=== PATIENT | female | born 1955 | race Hispanic/Latino ===

== ENCOUNTER → 2019-07-20 | Outpatient (CLI) | payer OTHER ==
[~2019-07-20] MED LIST: LATANOPROST2.5 ML OP; LOTREL 5-10 MG1 EACH PO; LOTREL 5-20 MG1 EACH PO
[2019-07-20 12:21] LABS: BASOPHILS % 0.3 % (0.0-1.0); EOSINOPHILS # (AUTO) 0.1 (0.0-0.4); EOSINOPHILS % 1.1 % (0.0-6.0); HEMATOCRIT 39.7 % (34.2-44.1); HEMOGLOBIN 13.6 g/dL (12.0-16.0); LYMPHOCYTES # (AUTO) 2.3 (1.0-3.2); MEAN CORPUSCULAR HEMOGLOBIN 32.5 pg (28-32); MEAN CORPUSCULAR HGB CONC 34.3 g/dL (31-35); MEAN CORPUSCULAR VOLUME 94.7 fL (81-99); MONOCYTES # (AUTO) 0.5 (0.2-0.8); MONOCYTES % 6.5 % (4.4-11.3); NEUTROPHILS # (AUTO) 4.2 (2.1-6.9); NEUTROPHILS % 59.7 % (38.7-80.0); PLATELET COUNT 216 x10e3/uL (140-360); RED BLOOD COUNT 4.19 x10e6/uL (3.6-5.1); RED CELL DISTRIBUTION WIDTH 12.8 % (11.7-14.4)
--- NOTE | 2019-07-20 12:40 | Diagnostic Imaging Report ---
EXAMINATION: CHEST 2 VIEWS INDICATION: Pre-operative COMPARISON: None FINDINGS: LINES/TUBES:None LUNGS:The lungs are well-inflated. No focal consolidation or pulmonary edema. PLEURA:No pleural effusion or pneumothorax. MEDIASTINUM:The cardiomediastinal silhouette appears normal in size and shape. BONES/SOFT TISSUES:No acute osseous injury. ABDOMEN:No free air under the diaphragm. IMPRESSION: No focal pneumonia or pulmonary edema. Signed by: Emmie Velazquez MD on 07/20/2019 12:38 PM
== END ==
LOC: RAD 05:00 → EDSTATUS 07-22 07:00
PROVIDERS: ATTEND Otolaryngology
DX: Z01.818 Encounter for other preprocedural examination (principal); C73 Malignant neoplasm of thyroid gland
CPT/HCPCS: 36415; 71046; 85025; 93005

== ENCOUNTER → 2019-07-30 | Day surgery (SDC) | payer OTHER ==
[2019-07-27 13:05] LABS: BASOPHILS % 0.3 % (0.0-1.0); EOSINOPHILS # (AUTO) 0.1 (0.0-0.4); EOSINOPHILS % 1.3 % (0.0-6.0); HEMATOCRIT 40.5 % (34.2-44.1); HEMOGLOBIN 13.8 g/dL (12.0-16.0); LYMPHOCYTES # (AUTO) 2.7 (1.0-3.2); LYMPHOCYTES % 36.5 % (18.0-39.1); MEAN CORPUSCULAR HEMOGLOBIN 32.5 pg (28-32); MEAN CORPUSCULAR HGB CONC 34.1 g/dL (31-35); MEAN CORPUSCULAR VOLUME 95.5 fL (81-99); MONOCYTES # (AUTO) 0.5 (0.2-0.8); NEUTROPHILS # (AUTO) 4.1 (2.1-6.9); NEUTROPHILS % 54.6 % (38.7-80.0); PLATELET COUNT 245 x10e3/uL (140-360); RED BLOOD COUNT 4.24 x10e6/uL (3.6-5.1); RED CELL DISTRIBUTION WIDTH 12.6 % (11.7-14.4)
[2019-07-27 13:25] LABS: ALBUMIN 4.5 g/dL (3.5-5.0); ALBUMIN/GLOBULIN RATIO 1.2 (0.8-2.0); ANION GAP 13.1 mmol/L (8-16); CALCIUM 10.6 mg/dL (8.4-10.2); CREATININE, SERUM 0.99 mg/dL (0.57-1.11); POTASSIUM 4.1 mmol/L (3.5-5.1)
[~2019-07-30] VITALS: Ht 157.5 cm; Wt 74.8 kg
[2019-07-30] VITALS (14 sets, daily range): BP systolic 1–151; BP diastolic 61–83
[~2019-07-30] MED LIST changes: +DIPHENHYDRAMINE HCL INJ 50 MG/ML VIAL ONE; +FENTANYL CITRATE/PF 100MCG/2 ML INJ ONE; +HEPARIN SOD/SOD CHLORIDE 2,000 ML ONE; +IOPAMIDOL 370 MG/ML 200 ML INFUS..BTL INJ ONE; +LIDOCAINE HCL 2% LOCAL 20 ML VIAL ONE; +MIDAZOLAM HCL 2 MG/2 ML VIAL ONE; +PROMETHAZINE HCL (IM) 25 MG/ML VIAL ONE; +SODIUM CHLORIDE 0.9% 1000ML 1,000 ML ONE; +VERAPAMIL HCL 2.5 MG/ML 2 ML VIAL ONE
--- OUTSIDE RECORDS SUMMARY | 2019-07-30 10:59 | XMS REPORT ---
[facility] Address Unknown Phone Unavailable Care Team Providers Care Assistant Unit Forester Name Role Phone SUNG ZAPIEN Unavailable Unavailable Problems This patient has no known problems. Allergies, Adverse Reactions, Alerts This patient has no known allergies or adverse reactions. Medications This patient has no known medications. Results Test Description Test Time Test Comments Text Results Atomic Results Result Comments CHEST 2 VIEWS 2019-07-20 12:37:00 [place] [address] Patient Name: GISSELLE VENEGAS MR #: [id number] : 1955 Age/Sex: 64/F Req #: [id number] Adm Physician: Ordered by: CURRY WILLETT, SUNG WILLETT Report #: [id number] Location: OR Room/Bed: Procedure: [id number] DX/CHEST 2 VIEWS Exam Date: 07/20/19 Exam Time: 1200 REPORT STATUS: Signed EXAMINATION: CHEST 2 VIEWS INDICATION: Pre-operative COMPARISON: None FINDINGS: LINES/TUBES:None LUNGS:The lungs are well-inflated. No focal consolidation or pulmonary edema. PLEURA:No pleural effusion or pneumothorax. MEDIASTINUM:The cardiomediastinal silhouette appears normal in size and shape. BONES/SOFT TISSUES:No acute osseous injury. ABDOMEN:No free air under the diaphragm. IMPRESSION: No focal pneumonia or pulmonary edema. Signed by: Teresa Benton MD on 07/20/2019 12:38 PM Dictated By: TERESA BENTON MD 1238 Transcribed By: JESSICA on 07/20/19 1238 COPY TO: SUNG ZAPIEN FNA US GUIDED 1ST LESION 2019-06-03 12:42:00 [place] [address] Patient Name: GISSELLE VENEGAS MR #: [id number] : 1955 Age/Sex: 64/F Req #: [id number] Adm Physician: Ordered by: SUNG ZAPIEN MD, MD Report #: [id number] Location: US Room/Bed: Procedure: [id number] IR/FNA US GUIDED 1ST LESION Exam Date: 06/03/19 Exam Time: 1046 REPORT STATUS: Signed Ultrasound guided fine needle aspiration biopsy, 06/03/2019 Clinical History: Thyroid nodule Comparison: Ultrasound of the thyroid dated 2019 Sedation: None. Supervisor Offset Plate Preparation: Ruma. [employer]: None. Estimated Blood Loss: none Specimen: 4 FNA samples. Technique: Informed consent was obtained. The risks of pain, bleeding, infection, injury to thyroid/adjacent structures and adverse medication reactions were discussed with the patient. After informed consent was obtained, the patient's thyroid gland was scanned. An approximately 1.0 1.5 x 1.4 cm solid nodule in the intrapolar region was identified and targeted for fine-needle aspiration. After the skin was prepped and draped in the usual sterile manner and local anesthesia was achieved with 1% lidocaine, a 25 gauge needle was advanced into the left thyroid nodule, under direct sonographic observation. A total of 4 passes were made. Cytopathology support was present during the procedure and deemed the specimens sufficient for diagnosis.The patient tolerated the procedure well, without immediate complications. The patient was discharged from the department in good condition. Impression: Successful and uncomplicated ultrasound guided fine needle aspiration a left thyroid nodule described above.. Signed by: Osvaldo Levi MD on 06/03/2019 12:44 PM Dictated By: OSVALDO LEVI MD 1244 Transcribed By: JESSICA on 06/03/19 1244 COPY TO: SUNG ZAPIEN US THYROID 2019 15:41:00 [place] [address] Patient Name: GISSELLE VENEGAS MR #: [id number] : 1955 Age/Sex: 64/F Req #: [id number] Adm Physician: Ordered by: SUNG ZAPIEN MD, MD Report #: [id number] Location: US Room/Bed: Procedure: [id number] US/US THYROID Exam Date: 05/28/19 Exam Time: 1217 REPORT STATUS: Signed Thyroid ultrasound History: Thyroid nodules Comparison: N one Findings: The thyroid echotexture is normal. Vascularity is normal. The right lobe measures 4.9 x 1.5 x 1.4 cm. The left lobe measures 3.6 x 1.3 x 1.7 cm. The isthmus measures 0.4 cm. Nodules (measurements are AP, transverse, craniocaudal): Right Lobe: 1. Upper pole 1.1 x 0.7 x 1.2 cm mixed cystic and solid nodule without internal calcification (TR 1) 2. Lower pole 0.7 x 0.6 x 0.6 cm mixed cystic and solid isoechoic smoothly marginated nodule without internal calcification (TR 2) Left Lobe: 1. Interpolar 1.0 x 1.5 x 1.4 cm solid, hypoechoic, taller than wide, lobulated nodule with macrocalcifications (TR 5). Isthmus: No cystic mass or discrete solid nodule identified. Lymph Nodes: No cervical lymph nodes are identified. Parathyroids: Not visualized. IMPRESSION: Left thyroid interpolar 1.0 x 1.5 x 1.4 cm nodule is highly suspicious (TR 5). Recommend FNA. Right thyroid mixed cystic and solid nodules are not suspicious. ACR glossary of thyroid rads TI-RADS 1: No focal lesion. TI-RADS 2: Not suspicious. TI-RADS 3: Mildly suspicious (recommend FNA is greater than or equal to 2.5 cm; follow-up at 1, 3, and 5 years if greater than or equal to 1.5 cm) TI-RADS 4: Moderately Suspicious (recommend FNA is greater than or equal to 1.5 cm; follow-up at 1, 2, 3, and 5 years) TI-RADS 5: Highly suspicious (recommend FNA is greater than or equal to 10 mm) TI-RADS 6: Biopsy-proven malignancy Signed by: Teresa Benton MD on 2019 3:47 PM Dictated By: TERESA BENTON MD 154 Transcribed By: JESSICA on 05/28/19 154 COPY TO: SUNG ZAPIEN
--- NOTE | 2019-07-30 17:30 | NUR ---
Patient ambulated to restroom with standby assistance. Patient voided without difficulty. Patient ambulated back to stretcher with standby assistance. No distress noted. Family assisting patient to get dressed.
--- NOTE | 2019-07-30 17:45 | NUR ---
IV to left hand removed and dressing placed per unit protocol. Dressing to left hand is clean, dry, and intact. Dressing to right wrist is clean,dry, and intact. Right arm splint in place. Dressing to right groin is clean,dry, and intact. Patient discharged to private vehicle via wheelchair with Jose Ramon Rivers as water truck driver. Patient discharged with belongings. No distress noted at time of discharge.
--- NOTE | 2019-07-30 19:34 | Operative Report ---
DATE OF PROCEDURE: 07/30/2019 SURGEON: Pierce Cordoba MD CARDIAC SERVICES CLERK PROCEDURE INDICATION: Coronary artery disease, abnormal stress test. PROCEDURES PERFORMED: 1. Left heart catheterization, selective coronary angiography. 2. Deployment of right wrist TR band. 3. Manual removal of the right groin sheath. COMPLICATIONS: Severe spasm of the right brachial artery necessitating groin access. DESCRIPTION OF PROCEDURE: Access obtained in the right radial artery. A 5-Emirati sheath was placed, severe spasm, unable to advance catheter. Right groin access was obtained. Coronary angiography demonstrated mild coronary artery disease, 10% to 20% luminal irregularities. Excellent flow in all vessels. No critical stenosis or occlusions were noted. No intervention was deemed necessary. Right groin sheath was removed under manual pressure. Right wrist TR band was applied. The patient was discharged home same day with clearance for her noncardiac surgery. Pierce Cordoba MD KSB/MODL /[id number]
== END | disposition home or self-care (01) ==
LOC: CATH LAB 10:56
PROVIDERS: ATTEND Internal Medicine Interventional Cardiology
DX: I25.118 Atherosclerotic heart disease of native coronary artery with other forms of angina pectoris (principal); R94.39 Abnormal result of other cardiovascular function study; I10 Essential (primary) hypertension; Z01.812 Encounter for preprocedural laboratory examination; Z68.31 Body mass index [BMI] 31.0-31.9, adult
CPT/HCPCS: 36415; 80053; 85025; 93454; C1769 ×2; C1887; J1200; J2001; J2250; J2550; J3010; J7030; Q9967; 99152; 99153

== ENCOUNTER 2019-10-07 05:42 | Observation (INO) | payer OTHER ==
[2019-10-02 10:46] LABS: BASOPHILS % 0.2 % (0.0-1.0); EOSINOPHILS # (AUTO) 0.1 (0.0-0.4); EOSINOPHILS % 1.8 % (0.0-6.0); HEMATOCRIT 38.2 % (34.2-44.1); HEMOGLOBIN 12.7 g/dL (12.0-16.0); LYMPHOCYTES # (AUTO) 2.3 (1.0-3.2); LYMPHOCYTES % 35.1 % (18.0-39.1); MEAN CORPUSCULAR HEMOGLOBIN 32.1 pg (28-32); MEAN CORPUSCULAR HGB CONC 33.2 g/dL (31-35); MEAN CORPUSCULAR VOLUME 96.5 fL (81-99); MONOCYTES # (AUTO) 0.6 (0.2-0.8); MONOCYTES % 9.2 % (4.4-11.3); NEUTROPHILS # (AUTO) 3.6 (2.1-6.9); NEUTROPHILS % 53.5 % (38.7-80.0); PLATELET COUNT 232 x10e3/uL (140-360); RED BLOOD COUNT 3.96 x10e6/uL (3.6-5.1); RED CELL DISTRIBUTION WIDTH 13.2 % (11.7-14.4)
[~2019-10-07] VITALS: Ht 160 cm; Wt 83.0 kg
[~2019-10-07 05:42] MED LIST changes: -DIPHENHYDRAMINE HCL INJ 50 MG/ML VIAL ONE; -FENTANYL CITRATE/PF 100MCG/2 ML INJ ONE; -HEPARIN SOD/SOD CHLORIDE 2,000 ML ONE; -IOPAMIDOL 370 MG/ML 200 ML INFUS..BTL INJ ONE; -LIDOCAINE HCL 2% LOCAL 20 ML VIAL ONE; -MIDAZOLAM HCL 2 MG/2 ML VIAL ONE; -PROMETHAZINE HCL (IM) 25 MG/ML VIAL ONE; -SODIUM CHLORIDE 0.9% 1000ML 1,000 ML ONE; -VERAPAMIL HCL 2.5 MG/ML 2 ML VIAL ONE
--- OUTSIDE RECORDS SUMMARY | 2019-10-07 05:45 | XMS REPORT ---
Author Author [facility] t Organization [facility] Address [address] [place] [address] Phone Unavailable Care Team Providers Care Manager City Name Role Phone Jin WILLETT, Victor Manuel PCP SUNG ZAPIEN Unavailable Bren WILLETT, Angelica Guevara Attphys Payers Payer Name Policy Type Policy Number Effective Date Expiration Date S giulianakajal JIGNESH OPEN ACCESS/NETWORKxxxxxxxxxxx2016-PresentO xxxxxxxxxxx 2016 00:00:00 Michael Floyd Problems This patient has no known problems. Allergies, Adverse Reactions, Alerts This patient has no known allergies or adverse reactions. Family History Family Member Diagnosis Comments Start Date Stop Date Source Natural father Cancer [facility] Natural father Diabetes [facility] Maternal aunt Cancer [facility] Natural sister Breast cancer Michael Floyd Social History Social Habit Start Date Stop Date Quantity Comments Source Sex Assigned [facility] stocarolyn Floyd Alcohol intake 2019-01-23 00:00:00 2019-01-23 00:00:00 Current non-drinker of alcohol (finding) Michael Floyd Smoking Status Start Date Stop Date Source Never smoker Michael yeboah Medications Ordered Medication Name Filled Medication Name Start Date Stop Da te Current Medication? Ordering Clinician Indication Dosage Frequency Signature (SIG) Comments Components Source latanoprost (XALATAN) 0.005 % ophthalmic solution 2017-08-18 00:00:00 Yes Michael Norris ist amlodipine-benazepril (LOTREL 2.5-10) 2.5-10 mg per capsule 2017-08-15 00:00:00 Yes Michael Floyd Vital Signs Vital Name Observation Time Observation Value Comments Source Systolic blood pressure 2019-01-23 14:16:00 155 mm[Hg] Michael Floyd Diastolic blood pressure 2019-01-23 14:16:00 84 mm[Hg] Michael Floyd Heart rate 2019-01-23 14:16:00 69 /min Michael Floyd Body height 2019-01-23 14:16:00 160 cm Michael Floyd Body weight 2019-01-23 14:16:00 73.392 kg Michael Floyd BMI 2019-01-23 14:16:00 28.66 kg/m2 Michael Floyd Procedures Procedure Date / Time Performed Performing Clinician Sourc e PAP W/AGE BASED SCREENING PLUS CT/NG 2019-01-23 14:37:00 Ismale Correia THINPREP TIS PAP 2019-01-23 14:37:00 Ismael Correia HPV MRNA E6/E7 REFLEX HPV 16, 18/45 (REFLEX) 2019-01-23 14: 37:00 Ismael Correia CHLAMYDIA/N. GONORRHOEAE RNA, TMA 2019-01-23 14:37:00 Ori Correia Plan of Care Planned Activity Planned Date Details Comments Source Future Scheduled Test [code = ] Future Scheduled Test [code = ] Future Scheduled Test [code = ] Future Scheduled Test [code = ] Future Scheduled Test [code = ] Future Scheduled Test [code = ] Results Test Description Test Time Test Comments Results Result Comments Source CHEST 2 VIEWS 2019-07-20 12:37:00 [place] [address] Patient Name: GISSELLE VENEGAS MR #: [id number] : 1955 Age/Sex: 64/F Req #: [id number] Adm Physician: Ordered by: CURRY WILLETT, SUNG WILLETT Report #: [id number] Location: OR Room/Bed: Procedure: [id number] DX/CHEST 2 VIEWS Exam Date: 07/20/19 Exam Time: 1200 REPORT STATUS: Signed EXAMINATION: CHEST 2 VIEWS INDICATION: Pre-operative COMPARISON: None FINDINGS: LINES/TUBES:None LUNGS:The lungs are well-inflated. No focal consolidation or pulmonary edema. PLEURA:No pleural effusion or pneumothorax. MED IASTINUM:The cardiomediastinal silhouette appears normal in size and shape. BONES/SOFT TISSUES:No acute osseous injury. ABDOMEN:No free air under the diaphragm. IMPRESSION: No focal pneumonia or pulmonary edema. Signed by: Teresa Benton MD on 07/20/2019 12:38 PM Dictated By: TERESA BENTON MD 1238 Transcribed By: JESSICA on 07/20/19 1238 COPY TO: SUNG ZAPIEN US GUIDED 1ST LESION 2019-06-03 12:42:00 [place] [address] Patient Name: GISSELLE VENEGAS MR #: [id number] : 1955 Age/Sex: 64/F Req #: [id number] Adm Physician: Ordered by: SUNG ZAPIEN MD, MD Report #: [id number] Location: Room/Bed: Procedure: [id number] IR/FNA US GUIDED 1ST LESION Exam Date: 06/03/19 Exam Time: 1046 REPORT STATUS: Signed Ultrasound guided fine needle aspiration biopsy, 06/03/2019 Clinical History: Thyroid nodule Comparison: Ultrasound of the thyroid dated 2019 Sedation: None. Sports Agent: Ruma. Appian Bpm Developer: None. Estimated Blood Loss: none Specimen: 4 [...] on 06/03/19 1244 COPY TO: SUNG ZAPIEN THYROID 2019 15:41:00 [place] [address] Patient Name: GISSELLE VENEGAS MR #: [id number] : 1955 Age/Sex: 64/F Req #: [id number] Adm Physician: Ordered by: SUNG ZAPIEN MD, MD Report #: [id number] Location: Room/Bed: Procedure: [id number] US/US THYROID Exam Date: 01/02/20 Exam Time: 1217 REPORT STATUS: Signed Thyroid ultrasound History: Thyroid nodules Comparison: None Findings: The thyroid echotexture is normal. Vascularity [...] 3:47 PM Dictated By: TERESA BENTON MD 46 Transcribed By: JESSICA on 05/28/191546 COPY TO: SNUG ZAPIEN THINPREP TIS PAP 2019-01-31 20:41:00 Test Item Clinical information (test code = 18431-4) None given Date of last menstrual period (test code = 8665-2) NONE GIVEN Prev. pap: (test code = 02997-3) NONE GIVEN Prev. bx: (test code = 14507-8) NONE GIVEN Source (test code = 92530-3) None given Statement of adequacy (test code = 20364-0) Satisfactory for evaluation.Endocervical/transformation zone componentpresent. Interpretation/result: (test code = 57629-8) Negative for intraepithelial lesion or malignancy.Atrophic pattern; predominantly parabasal cells Comment (test code = 19272-4) This Pap test has been evaluated with computerassisted technology. Search Marketing Analyst (test code = 88101-8) YL, CT(ASCP)CT screening location: [address], [place] [address] Comment (test code = 5357052) EXPLANATORY NOTE: The Pap is a screening test for cervical cancer. It is not a diagnostic test and is subject to false negative and false positive results. It is most reliable when a satisfactory sa mple, regularly obtained, is submitted with relevant clinical findings and history, and when the Pap result is evaluated along with historic and current clinical information. SUDARSHAN (test code = SUDARSHAN) Performing Organization Info rmation: Site ID: [id number] Name: [facility] Address: [address] [place] [phone] Director: Neno FloydCHLAMYDIA/N. GONORRHOEAE RNA, BDD3722-07-09 20:41:00* Test Item Value Reference Range Interpretation Comments Chlamydia trachomatis RNA, TMA (test code = 63316-4) NOT DETECTE D NOT DETECTED Neisseria gonorrhoeae RNA, TMA (test code = 51515-6) NOT DETECTE D NOT DETECTED (Always message) (test code = 2647) This test was performed using the APTIMA COMBO2 Assay([employer] The analytical performance characteristics of this assay, when used to test SurePath specimens havebeen determined by [facility]. SUDARSHAN (test code = SUDARSHAN) Performing Organization Info rmation: Site ID: [id number] Name: [facility] Address: [address] [place] [address] Director: Dr. Neno FloydHPV mRNA E6/E7 REFLEX HPV 16, 18/423169-30-14 20:41:00* Test Item Value Reference Range Interpretation Comments HPV mRNA e6/e7 (test code = 62278-8) Not Detected Not Detected This test was performed using the APTIMA HPV Assay ([employer] This assay detects E6/E7 viral messenger RNA (mRNA) from 14high-risk HPV types (16,18,31,33,35,39,45,51,52,56,58,59,66,68). The analytical performance characteristics ofthis assay have been determined by Fingerprint. The modifications have not beencleared or approved by the FDA. This assay hasbeen validated pursuant to the CLIA regulationsand is used for clinical purposes. SUDARSHAN (test code = RAC) Performing Organization Info rmation: Site ID: [id number] Name: [facility] Address: [address] [place] [phone] Director: Dr. Neno FloydPAKeshawn W/AGE BASED SCREENING PLUS CT/YD3746-04-03 20:41:00 CommentComment: This order for age-based cervical cancer and STI screening follo ws ACOG guidelines(PB 168, 140,FPA016). See individual assays for performing sit e location. Destinator TechnologiesKESSLER INSTITUTE FOR RE[facility]ABILITATION IIPerforming Organization Information: S ite ID: IG Name: [facility] Address: [address] [place] [phone] Director: Dr. Neno Floyd
--- OUTSIDE RECORDS SUMMARY | 2019-10-07 05:45 | XMS REPORT | Clinical Summary ---
Author Author [facility] Address Unknown Phone Unavailable Care Team Providers Care Stove Mounter Name Role Phone Victor Manuel Abdi MD PCP Allergies No Known Allergies Medications End Date Status Medication Sig Dispensed Refills Start Date Active amlodipine-benazepril 0 (LOTREL 2.5-10) 2.5-10 mg 8 per capsule Active latanoprost (XALATAN) 0 0.005 % ophthalmic 8 solution Active Problems Not on file Encounters Care Team Description Date Type Specialty Ismael Correia MD 02/10/2019 Telephone Obstetrics and Gyne cology Ismael Correia MD Screening for cervical cancer (Primary D x); Well woman exam 01/23/2019 Office Visit Obstetrics and Gyne cology after 10/06/2018 Family History Medical History Relation Name Comments Cancer Father Diabetes Father Cancer Maternal Aunt Breast cancer Sister Relation Name Status Comments Father Maternal Aunt Sister Social History Date Tobacco Use Types Packs/Day Years Used Never Smoker Smokeless Tobacco: Never Used Drinks/Week oz/Week Comments Alcohol Use No Sex Assigned at Date Recorded Not on file Industry Job Start Date Occupation Not on file Not on file Not on file Travel End Travel History Travel Start No recent travel history available. Last Filed Vital Signs Reading Time Taken Comments Vital Sign 155/84 01/23/2019 9:16 AM CDT Blood Pressure 69 01/23/2019 9:16 AM CDT Pulse - - Temperature - - Respiratory Rate - - Oxygen Saturation - - Inhaled Oxygen Concentration 73.4 kg (161 lb 12.8 oz) 01/23/2019 9:16 AM CDT Weight 160 cm (5' 3") 01/23/2019 9:16 AM CDT Height 28.66 01/23/2019 9:16 AM CDT Body Mass Index Plan of Treatment Health Maintenance Due Date Last Done Comments CERVICAL CANCER SCREENING 1975 BREAST CANCER SCREENING 2004 COLONOSCOPY SCREENING 2004 SHINGLES VACCINES (#1) 2004 65+ PNEUMOCOCCAL VACCINE 2019 (1 of 2 - PCV13) INFLUENZA VACCINE 12/26/2019 Procedures Comments Procedure Name Priority Date/Time Associated Diag nosis CHLAMYDIA/N. GONORRHOEAE Routine 01/23/2019 RNA, TMA 9:37 AM CDT HPV MRNA E6/E7 REFLEX Routine 01/23/2019 HPV 16, 18/45 (REFLEX) 9:37 AM CDT THINPREP TIS PAP Routine 01/23/2019 9:37 AM CDT PAP W/AGE BASED SCREENING Routine 01/23/2019 Scre ening for cervical PLUS CT/NG 9:37 AM CDT cancer Well woman exam after 10/06/2018 Results * HPV mRNA E6/E7 REFLEX HPV 16, 18/45 (01/23/2019 9:37 AM CDT) HPV mRNA e6/e7 Not Detected Not Detected [facility] Comment: DIAGNOSTICS-LILI This test was performed using ING II the APTIMA HPV Assay ([employer] This assay detects E6/E7 viral messenger RNA (mRNA) from 14 high-risk HPV types (16,18,31,33,35,39,45,51,52,56 ,58,59,66,68). The analytical performance characteristics of this assay have been determined by Flowline. The modifications have not been cleared or approved by the FDA. This assay has been validated pursuant to the CLIA regulations and is used for clinical purposes. Specimen Resulting Agency Comment Performing Organization Information: Site ID: [id number] Name: [facility] Address: [address] [place] [address] Director: Dr. Neno Torres Performing Organization Address City/State/Zipcode Ph one Number PAPI FISHER Ryan-[facility]RUN[facility] [address] [place] [address]. [place] [address] II * PAP W/AGE BASED SCREENING PLUS CT/NG (01/23/2019 9:37 AM CDT) Comment Comment: [facility] This order for age-based DIAGNOSTICS-LILI cervical cancer and STI ING II screening follows ACOG guidelines(PB 168, 140, JZT794). See individual assays for performing site location. Specimen Swab Resulting Agency Comment Performing Organization Information: Site ID: [id number] Name: [facility] Address: [address] [place] [phone] Director: Dr. Neno Torres Performing Organization Address [facility] one Number PAPI Cubie [address] [address] II * CHLAMYDIA/N. GONORRHOEAE RNA, TMA (01/23/2019 9:37 AM CDT) Chlamydia NOT DETECTED NOT DETECTED [facility] trachomatis DIAGNOSTICS-[facility] RNA, TMA ING II Neisseria NOT DETECTED NOT DETECTED [facility] gonorrhoeae DI[facility]NOSTICS-[facility] RNA, TMA ING II (Always Comment: [facility] message) This test was performed using RoomiePics TICS-LILI the APTIMA COMBO2 Assay ING II ([employer] The analytical performance characteristics of this assay, when used to test SurePath specimens have been determined by [facility]line. Specimen Resulting Agency Comment Performing Organization Information: Site ID: [id number] Name: [facility] Address: [address] [place] [phone] Director: Dr. Neno Torres Performing Organization Address [facility] one Number PAPI Cubie [address] [address] II * THINPREP TIS PAP (01/23/2019 9:37 AM CDT) Clinical None given [facility] information [facility]NOSTICS [place] Date of last NONE GIVEN [facility] menstrual DIAGNOSTICS period [place] Prev. pap: NONE GIVEN [facility] [place] Prev. bx: NONE GIVEN [facility] [place] Source None given [facility] [place] Statement of Comment: [facility] adequacy Satisfactory for evaluation. DIAGNOST ICS Endocervical/transformation [place] zone component present. Interpretation/ Comment: [facility] result: Negative for intraepithelial DIAGNOST ICS lesion or malignancy. IBIS Atrophic pattern; predominantly parabasal cells Comment Comment: [facility] This Pap test has been DIAGNOSTICS evaluated with Radius App technology. Cytotechnologis Comment: [facility] t YL, CT(ASCP) DIAGNOSTICS CT screening location: [facility] [address] [place] [address], [facility] [address] Comment Comment: Cubie EXPLANATORY NOTE: DIAGNOSTICS The Pap is a screening test [place] for cervical cancer. It is not a diagnostic test and is subject to false negative and false positive results. It is most reliable when a satisfactory sample, regularly obtained, is submitted with relevant clinical findings and history, and when the Pap result is evaluated along with historic and current clinical information. Specimen Resulting Agency Comment Performing Organization Information: Site ID: [id number] Name: [facility] Address: [address] [place] [phone] Director: Neno Torres Performing Organization Address City/State/Zipcode Ph one Number [address] [address] after 10/06/2018 Insurance Type Payer Benefit Subscriber ID Effective Phone Address Plan / Dates Group HMO CIGNA CIGNA OPEN xxxxxxxxxxx 2016-P ACCESS/NET resent WORK Advance Directives For more information, please contact: [phone] Patient Corrections Identification Technician Explanation Type Date Recorded Advance Directives, Living Will and Medical Power of Belt Molder
[2019-10-07] MEDS ORDERED: LIDOCAINE 1% W/EPINEPHRINE 20 ML VIAL ONE (06:43)
[2019-10-07] MEDS ORDERED: ACETAMINOPHEN 1000 MG/100 ML 100 ML IV ONE (06:52)
[2019-10-07] MEDS ORDERED: LIDOCAINE HCL (LTA) 4 ML SOLN ONE (06:52)
[2019-10-07] MEDS ORDERED: FENTANYL CITRATE/PF 100MCG/2 ML INJ ONE ×2 (10:24→19:00)
--- OUTSIDE RECORDS SUMMARY | 2019-10-07 10:31 | XMS REPORT | Clinical Summary ---
Author Author [facility] [facility] [employer] [employer] Address Unknown Phone Unavailable Care Team Providers Care Wreath And Garland Maker Hand Name Role Phone Victor Manuel Abdi MD [...] using ING II the APTIMA HPV Assay ([employer] This assay detects E6/E7 viral messenger RNA (mRNA) from 14 high-risk HPV types (16,18,31,33,35,39,45,51,52,56 ,58,59,66,68). The analytical performance characteristics of this assay have been determined by [employer]. The modifications have not been cleared or approved by the FDA. This assay has been validated pursuant to the CLIA regulations and is used for clinical purposes. Specimen Resulting Agency Comment Performing Organization Information: Site ID: IG Name: [facility] Address: [address] [place] [address] Director: Dr. Neno Torres Performing Organization Address City/State/Zipcode Ph one Number PAPI FISHER [facility] [address] [place] [address]. [place] [address] II * PAP W/AGE BASED SCREENING PLUS CT/NG (01/23/2019 9:37 AM CDT) Comment Comment: [facility] This order for age-based DIAGNOSTICS-LILI cervical cancer and STI ING II screening follows ACOG guidelines(PB 168, 140, SYW394). See individual assays for performing site location. Specimen Swab Resulting Agency Comment Performing Organization Information: Site ID: IG Name: [facility] Address: [address] [place] [phone] Director: Dr. Neno Torres Performing Organization Address [facility] one Number PAPI [employer] [address] [address] II * CHLAMYDIA/N. GONORRHOEAE RNA, TMA (01/23/2019 9:37 AM CDT) Chlamydia NOT DETECTED NOT DETECTED [facility] trachomatis DIAGNOSTICS-LILI RNA, TMA ING II Neisseria NOT DETECTED NOT DETECTED [facility] gonorrhoeae DIAGNOSTICS-LILI RNA, TMA ING II (Always Comment: [facility] message) This test was performed using Perk TICS-LILI the APTIMA COMBO2 Assay ING II ([employer] The analytical performance characteristics of this assay, when used to test SurePath specimens have been determined by [employer]. Specimen Resulting Agency Comment Performing Organization Information: Site ID: IG Name: [facility] Address: [address] [place] [phone] Director: Dr. Neno Torres Performing Organization Address [facility] one Number PAPI [employer] [address] [address] II * THINPREP TIS PAP (01/23/2019 9:37 AM CDT) Clinical None given [facility] information DIAGNOSTICS [place] Date of last NONE GIVEN [facility] menstrual DIAGNOSTICS period [place] Prev. pap: NONE GIVEN [facility] DIAGNOSTICS [place] Prev. bx: NONE GIVEN [facility] [place] Source None given [facility]STICS [place] Statement of Comment: [facility] adequacy Satisfactory for evaluation. DIAGNOST ICS Endocervical/transformation [place]ANN zone component present. Interpretation/ Comment: [facility] result: Negative for intraepithelial DIAGNOST ICS lesion or malignancy. IBIS Atrophic pattern; predominantly parabasal cells Comment Comment: [facility] This Pap test has been DIAGNOSTICS evaluated with [employer] technology. Cytotechnologis Comment: [facility] t YL, CT(ASCP) DIAGNOSTICS CT screening location: [facility] [address] [place] [address], [facility] [address] Comment Comment: [employer] EXPLANATORY NOTE: DIAGNOSTICS The Pap is a screening test [place] for cervical cancer. It is not a diagnostic test and is subject to false negative and false positive results. It is most reliable when a satisfactory sample, regularly obtained, is submitted with relevant clinical findings and history, and when the Pap result is evaluated along with historic and current clinical information. Specimen Resulting Agency Comment Performing Organization Information: Site ID: MAGALY Name: [facility] Address: [address] [place] [phone] Director: Neno Torres Performing Organization Address City/State/Zipcode Ph one Number [address] [phone] after 10/06/2018 Insurance Type Payer Benefit Subscriber ID Effective Phone Address Plan / Dates Group HMO CIGNA CIGNA OPEN xxxxxxxxxxx 2016-P ACCESS/NET resent WORK Advance Directives For more information, please contact: [phone] Patient Dental Chairside Assistant Explanation Type Date Recorded Advance Directives, Living Will and Medical Power of Diaper Folder
--- OUTSIDE RECORDS SUMMARY | 2019-10-07 10:31 | XMS REPORT ---
Author Author [facility] t Organization [facility] Address [address] [place] [address] Phone Unavailable Care Team Providers Care Frame Fixer Name Role Phone Jin WILLETT, Victor Manuel [...] Date Stop Date Source Natural father Cancer [facility] Natural father Diabetes [facility] Maternal aunt Cancer [facility] Natural sister Breast cancer Michael [...] Michael Floyd BMI 2019-01-23 14:16:00 28.66 kg/m2 Micheal Floyd Procedures Procedure Date / Time Performed Performing Clinician Sourc e PAP W/AGE BASED SCREENING PLUS CT/NG 2019-01-23 14:37:00 Ismael Correia THINPREP TIS PAP 2019-01-23 14:37:00 Ismael [...] Comments Source CHEST 2 VIEWS 2019-07-20 12:37:00 [place] [address] Patient Name: GISSELLE VENEGAS MR #: [id number] : 1955 Age/Sex: 64/F Req #: [id number] Adm Physician: Ordered by: CURRY WILLETT, SUNG WILLETT Report #: [id number] Location: OR Room/Bed: Procedure: [id number] DX/CHEST 2 VIEWS Exam Date: 07/20/19 Exam [...] ZAPIEN US GUIDED 1ST LESION 2019-06-03 12:42:00 [place] [address] Patient Name: GISSELLE VENEGAS MR #: [id number] : 1955 Age/Sex: 64/F Req #: [id number] Adm Physician: Ordered by: SUNG ZAPIEN MD, MD Report #: [id number] Location: Room/Bed: Procedure: [id number] IR/FNA US GUIDED 1ST LESION Exam Date: 06/03/19 Exam Time: 1046 REPORT STATUS: Signed Ultrasound guided fine needle aspiration biopsy, 06/03/2019 Clinical History: Thyroid nodule Comparison: Ultrasound of the thyroid dated 2019 Sedation: None. Disk Grinder: Ruma. Traffic Engineer: None. Estimated Blood Loss: none Specimen: 4 [...] COPY TO: SUNG ZAPIEN THYROID 2019 15:41:00 [place] [address] Patient Name: GISSELLE VENEGAS MR #: [id number] : 1955 Age/Sex: 64/F Req #: [id number] Adm Physician: Ordered by: SUNG ZAPIEN MD, MD Report #: [id number] Location: Room/Bed: Procedure: [id number] US/US THYROID Exam Date: 01/02/20 Exam Time: [...] Transcribed By: JESSICA on 05/28/191546 COPY TO: SUNG ZAPIEN THINPREP TIS PAP 2019-01-31 20:41:00 Test Item Clinical information (test code = 71427-2) None given Date of last menstrual period (test code = 8665-2) NONE GIVEN Prev. pap: (test code = 08860-7) NONE GIVEN Prev. bx: (test code = 81622-6) NONE GIVEN Source (test code = 29535-4) None given Statement of adequacy (test code = 81638-4) Satisfactory for evaluation.Endocervical/transformation zone componentpresent. Interpretation/result: (test code = 45832-9) Negative for intraepithelial lesion or malignancy.Atrophic pattern; predominantly parabasal cells Comment (test code = 33250-3) This Pap test has been evaluated with computerassisted technology. Assisted Living Executive Director (test code = 74543-2) YL, CT(ASCP)CT screening location: [address], [place] [address] Comment (test code = 3588850) EXPLANATORY NOTE: The Pap is a screening [...] Organization Info rmation: Site ID: RGA Name: [facility] Address: [address] [place] [phone] Director: Neno FloydCHLAMYDIA/N. GONORRHOEAE RNA, [id number] 20:41:00* Test Item Value Reference Range Interpretation Comments Chlamydia trachomatis RNA, TMA (test code = 50887-7) NOT DETECTE D NOT DETECTED Neisseria gonorrhoeae RNA, TMA (test code = 16182-0) NOT DETECTE D NOT DETECTED (Always message) (test code = 2647) This test was performed using the APTIMA COMBO2 Assay([employer] The analytical performance characteristics of this assay, when used to test SurePath specimens havebeen determined by [employer]. SUDARSHAN (test code = SUDARSHAN) Performing Organization Info rmation: Site ID: IG Name: [facility] Address: [address] [place] [address] Director: Dr. Neno FloydHPV mRNA E6/E7 REFLEX HPV 16, 18/[id number] 20:41:00* Test Item Value Reference Range Interpretation Comments HPV mRNA e6/e7 (test code = 53251-7) Not Detected Not Detected This test was performed using the APTIMA HPV Assay ([employer] This assay detects E6/E7 viral messenger RNA (mRNA) from 14high-risk HPV types (16,18,31,33,35,39,45,51,52,56,58,59,66,68). The analytical performance characteristics ofthis assay have been determined by [employer]. The modifications have not beencleared or approved by the FDA. This assay hasbeen validated pursuant to the CLIA regulationsand is used for clinical purposes. SUDARSHAN (test code = RAC) Performing Organization Info rmation: Site ID: IG Name: [facility] Address: [address] [place] [phone] Director: Dr. Neno FloydPAKeshawn W/AGE BASED SCREENING PLUS CT/[id number] 20:41:00 CommentComment: This order for age-based cervical cancer and STI screening follo ws ACOG guidelines(PB 168, 140,EPI022). See individual assays for performing sit e location. [facility] IIPerforming Organization Information: S ite ID: IG Name: [facility] Address: [address] [place] [phone] Director: Dr. Neno Floyd
[2019-10-07 11:00] LABS: ALBUMIN 3.4 g/dL (3.5-5.0); CALCIUM 8.7 mg/dL (8.4-10.2)
--- NOTE | 2019-10-07 11:19 | Operative Report ---
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 POSTOPERATIVE DIAGNOSIS: Left thyroid lobe papillary carcinoma. PROCEDURE: Total thyroidectomy with preservation of recurrent laryngeal nerves with nerve integrity monitoring (NIM) endotracheal tube. SIGNIFICANT FINDINGS: Left thyroid lobe contained papillary carcinoma on frozen section analysis. The left thyroid lobe was scarred, fibrotic, and attached at the area of the Verdugo's ligament. Two lymph nodes were sent for permanent section analysis from the left superficial lateral neck. PHARMACIST IN CHARGE: Tiffanie Torres MD ANESTHESIA: General endotracheal tube anesthesia with NIM ET tube. SPECIMENS REMOVED: Bilateral thyroid lobes (total thyroid gland). Two lymph nodes from the left superficial lateral neck. ESTIMATED BLOOD LOSS: 40 mL. COMPLICATIONS: None. INDICATIONS: The patient is a 64-year-old Latin-[place] female, found to have thyroid nodules incidentally on carotid Doppler scan. She denies any throat symptoms. She has had no previous throat or neck surgery. There is no family history of throat cancer. Ultrasound-guided FNA biopsy of the left thyroid lobe nodule was positive for papillary carcinoma. CT neck performed on June 18, 2019 was negative for abnormal cervical lymphadenopathy. On examination, she has no overtly palpable neck masses. She is scheduled for a total thyroidectomy with preservation of recurrent laryngeal nerves using NIM endotracheal tube for the treatment of left thyroid papillary carcinoma. Risks and complications of the procedures were thoroughly discussed with the patient and her family and they include infection, bleeding, scarring, failure to improve, need for additional treatment and/or operations/surgery, poor external cosmetic appearance of the incision site, damage to upper airway causing voice changes and hoarseness, paralysis of the vocal cord(s), need for tracheostomy, permanent hypocalcemia (low calcium levels), damage to the pharynx and esophagus, damage to the vagus nerve, collapsed lung(s), need for blood transfusions, damage to surrounding nerves, blood vessels, and muscles. She and her family fully understand and gave consent. DESCRIPTION OF PROCEDURE: The patient was taken to the operating room and placed supine on the operating table where general anesthesia was achieved through orotracheal intubation using a NIM endotracheal tube. The electrodes for the nerve monitoring were placed appropriately, so that the electrodes made contact with the vocal cords. Paralysis wore off by the time the operation started. Ancef antibiotics were administered intraoperatively. Injection with 3 mL of 1% lidocaine with 1 to 100,000 epinephrine was injected along the natural skin crease 2-1/2 cm superior to the clavicles. The neck was then prepped and draped in the usual sterile fashion. An approximately 8 cm incision was then made along the natural skin crease. The incision was made past the platysmal layer. The superior and inferior skin flaps were then elevated. Faustino self- retaining retractor was then inserted. Midline raphe was then divided until the anterior surface of the thyroid isthmus was encountered. The left side was addressed first. Dissection was then carried out superficial to the left thyroid gland. Two lymph nodes measuring approximately 1 cm each were seen laterally in the neck, which were removed and sent for permanent section analysis and they were labeled as left lateral superficial neck lymph nodes. The overlying strap muscles were elevated off the left thyroid lobe. Following this, further dissection was then performed in the area inferior to the inferior edge of the left thyroid lobe. A parathyroid gland was seen and this was dissected away atraumatically, making sure to keep its vascular supply intact. The other parathyroid gland was also identified and preserved. The recurrent laryngeal nerve was then found and was traced atraumatically superiorly until it entered the larynx inferior to the cricothyroid muscle. Superior poles were then skeletonized and divided all the while keeping the recurrent laryngeal nerve in full view. This was divided with the Harmonic Scalpel. Following this, the left thyroid lobe was then dissected off its underlying attachments. Note was made that there was abnormal scarring and attachment of thyroid tissue in the area of the Verdugo's ligament, but all gross visible thyroid tissue was removed in this area taking care to avoid trauma to the recurrent laryngeal nerve as it entered the larynx inferior to the cricothyroid muscle. The integrity and identification of the recurrent laryngeal nerve was helped by the probe that was connected to the nerve integrity monitor (NIM). Following this, identification of both parathyroid glands both viable and vascularly intact were seen as well as proper functioning and intactness of the recurrent laryngeal nerve. The left thyroid lobe was sent for frozen section analysis, which came back as positive for papillary carcinoma. Attention was then directed to the right thyroid lobe where again, the strap muscles were elevated off the right thyroid lobe. Dissection inferior to the right thyroid lobe identified both parathyroid glands as well as the recurrent laryngeal nerve. The recurrent laryngeal nerve was dissected atraumatically superiorly as it entered the larynx inferior to the cricothyroid muscle. The superior attachments of the vascular pole were then skeletonized and divided with the Harmonic Scalpel. With the recurrent laryngeal nerve and both parathyroid glands on the right side in full view, the right thyroid gland was atraumatically dissected off its underlying attachments. The right thyroid lobe appeared to have no scarring or attachments as was on the left side. This was sent for permanent section analysis. Following this, thorough irrigation was then performed. No bleeding was seen despite Valsalva maneuver. All 4 viable parathyroid glands were seen as well as the recurrent laryngeal nerves bilaterally (which stimulated with the probe attached to the NIM monitor). Following this, a MARLON drain was then inserted and brought out through a separate stab incision. The midline raphe was reconstituted with interrupted 4- 0 Monocryl suture followed by interrupted 4-0 Monocryl through the platysmal layer followed by interrupted 4-0 Monocryl in a subcuticular fashion followed by Dermabond. The patient was awakened in the operating room, extubated, and taken to the recovery room in good condition. MD EFRNIE Lara/MODL /[id number] JANET
--- NOTE | 2019-10-07 12:45 | NUR ---
The pt. arrived to the unit from P acu sp Thyroidectomy with james drain intact to the left neck and is draining serous liquid. The pt. is awake and alert and comp of pain outside of the incision but declines ordered pain med. A call was placed to the to get tylenol ordered at the pt's request.
[2019-10-07] MEDS ORDERED: HYDROCODONE/APAP 5MG-325MG TAB PO PRN (13:00)
[2019-10-07] MEDS ORDERED: D5.45%NS/KCL 20MEQ 1,000 ML IV ONE (13:00)
[2019-10-07] MEDS ORDERED: ACETAMINOPHEN 325 MG TAB PO PRN (13:15)
[2019-10-07 14:02] VITALS: BP 132/64
[2019-10-07] MEDS: CEFAZOLIN SOD 1 GM/NS 50ML 50 ML IV SCH ×2 (14:14→22:00)
[2019-10-07 15:12] VITALS: BP 132/64
[2019-10-07 16:44] VITALS: BP 127/69
[2019-10-07] MEDS ORDERED: PROPOFOL IV EMULSION 10 MG/ML 20 ML VIAL ONE (18:26)
[2019-10-07] MEDS ORDERED: EPHEDRINE SULFATE INJ 50 MG/ML VIAL ONE (18:26)
[2019-10-07] MEDS ORDERED: LIDOCAINE HCL 2% JELLY 5 ML TUBE ONE (18:26)
[2019-10-07] MEDS ORDERED: SEVOFLURANE INHAL SOLN 250 ML PEN BTL ONE (18:26)
[2019-10-07] MEDS ORDERED: ONDANSETRON HCL INJ 2MG/ML 2ML 2 MG/ML VIAL ONE (18:26)
[2019-10-07] MEDS ORDERED: DEXAMETHASONE SOD PHOS INJ 4 MG/ML VIAL ONE (18:26)
[2019-10-07] MEDS ORDERED: LIDOCAINE HCL 2% LOCAL INJ 5 ML SDV VIAL INJ ONE (18:26)
[2019-10-07] MEDS ORDERED: MIDAZOLAM HCL 2 MG/2 ML VIAL ONE (19:00)
[2019-10-07 19:19] LABS: ALBUMIN 3.6 g/dL (3.5-5.0); CALCIUM 8.9 mg/dL (8.4-10.2)
[2019-10-07 20:00] VITALS: BP 124/67
--- NOTE | 2019-10-07 20:00 | NUR ---
CALLED LAB RESULTS TO MD ZAPIEN. CONTINUE TO MONITOR PT'S LABS AND CALL WITH ABNORMAL RESULTS. SALINE LOCK IV WHEN TOLERATING ORAL INTAKE.
[2019-10-07] MEDS ORDERED: LATANOPROST(OPTH) 2.5 ML BTL OP SCH (21:00)
[2019-10-08] VITALS: BP 119/56
[2019-10-08 01:16] LABS: ALBUMIN 3.7 g/dL (3.5-5.0); CALCIUM 9.3 mg/dL (8.4-10.2)
[2019-10-08 04:00] VITALS: BP 142/81
[2019-10-08 05:57] LABS: ALBUMIN 3.4 g/dL (3.5-5.0); CALCIUM 9.3 mg/dL (8.4-10.2)
[2019-10-08] MEDS: CEFAZOLIN SOD 1 GM/NS 50ML 50 ML IV SCH (06:17)
--- NOTE | 2019-10-08 07:01 | NUR ---
REPORT GIVEN TO DAYSHIFT NURSE. RESTING IN BEDSIDE CHAIR. AAOX3. NO SIGNS OF IV INFILTRATION. CALL LIGHT WITHIN REACH.
[2019-10-08 07:46] VITALS: BP 147/86
[2019-10-08 08:08] VITALS: BP 147/86
--- NOTE | 2019-10-08 08:50 | NUR ---
The visited with the pt. and gave her discharge and follow up instructions. The james drain was removed and small dressing applied. The pt. was advised that she can take a shower and keep hob elevated 45.
[2019-10-08] MEDS ORDERED: BENAZEPRIL PO SCH (09:00)
[2019-10-08] MEDS ORDERED: AMLODIPINE BESYLATE PO SCH (09:00)
[2019-10-08] MEDS ORDERED: [UNRECOGNIZED DRUG - OTHER] PO SCH (09:00)
[2019-10-08] MEDS ORDERED: BENAZEPRIL HCL 10 MG TAB PO SCH (09:00)
[2019-10-08] MEDS ORDERED: AMLODIPINE BESYLATE 5 MG TAB PO SCH (09:00)
[2019-10-08] MEDS ORDERED: ACETAMINOPHEN 325 MG TAB PO PRN (09:30)
[2019-10-08] MEDS ORDERED: LEVOTHYROXINE SODIUM 100 MCG TAB PO ONE (10:40)
--- NOTE | 2019-10-08 10:42 | NUR ---
The pt. has discharged home in stable condition with prescription and follow up instructions. She was escorted private car and placed into the care of her spouse.
== END 2019-10-08 10:35 | disposition home or self-care (01) ==
LOC: OR 05:42 → PACU V 10:19 → MED/SURG 12:38
PROVIDERS: ADMIT Otolaryngology; ATTEND Otolaryngology
DX: C73 Malignant neoplasm of thyroid gland (principal); I10 Essential (primary) hypertension; Z11.59 Encounter for screening for other viral diseases
CPT/HCPCS: 36415 ×3; 60240; 82040 ×2; 82310 ×2; 85025; 86850; 86900; 87635; 88305; 88309; 88331; G0378 ×2; J0131; J0690 ×2; J1100; J2001 ×2; J2250; J2405; J2704; J3010